=== PATIENT | male | born 1960 | race Caucasian/White ===

== ENCOUNTER 2021-04-24 16:50 | Emergency (ER) | payer BC ==
[~2021-04-24 16:50] MED LIST: Iopamidol 370 76% 100 ML VIAL ONE
[2021-04-24 17:49] LABS: #Basophils 0.1 thou/uL (0.0-0.2); #Eosinphils 0.2 thou/uL (0.0-0.7); #Lymphocytes 2.1 thou/uL (1.20-3.40); #Monocytes 0.6 thou/uL (0.11-0.59); #Neutrophils 6.4 thou/uL (1.40-6.50); %Basophils 0.7 % (0.0-1.0); %Eosinophils 1.7 % (0.0-10.0); %Lymphocytes 22.6 % (21.0-51.0); %Monocytes 6.8 % (0.0-10.0); %Neutrophils 68.3 % (42.0-75.0); Hemoglobin 15.1 g/dL (14.0-18.0); Mean Corpuscular HGB CONC 32.9 g/dL (32.0-36.0); Mean Corpuscular Hemoglobin 29.9 pg (27.0-31.0); Mean Corpuscular Volume 90.8 fL (78.0-98.0); Mean Platelet Volume 7.2 fL (7.4-10.4); Platelet Count 257 thou/uL (130-400); RBC Distribution Width 13.1 % (11.5-14.5); Red Blood Cell (RBC) Count 5.07 mill/uL (4.70-6.10); White Blood Cell (WBC) Count 9.4 thou/uL (4.8-10.8)
[2021-04-24 18:18] LABS: ALT (SGPT) 36 U/L (8-55); AST (SGOT) 42 U/L (5-34); Albumin 4.5 g/dL (3.5-5.0); Alkaline Phosphatase 57 U/L (40-110); Anion Gap 14 mmol/L (10-20); BUN (Urea Nitrogen) 17 mg/dL (8.4-25.7); Bilirubin, Total 0.4 mg/dL (0.2-1.2); Calc. Creatinine Clearance 0 mL/min (70-130); Calcium 9.9 mg/dL (7.8-10.44); Carbon Dioxide 29 mmol/L (22-29); Chloride 103 mmol/L (98-107); Globulin 2.5 g/dL (2.4-3.5); Glucose 114 mg/dL (70-105); Potassium 3.9 mmol/L (3.5-5.1); Sodium 142 mmol/L (136-145)
== END 2021-04-24 20:25 | disposition home or self-care (01) ==
LOC: ERS 16:50
DX: U07.1 COVID-19 (principal); R91.1 Solitary pulmonary nodule; I10 Essential (primary) hypertension; E11.9 Type 2 diabetes mellitus without complications; E78.5 Hyperlipidemia, unspecified; Z87.442 Personal history of urinary calculi; Z87.891 Personal history of nicotine dependence; Z79.899 Other long term (current) drug therapy
CPT/HCPCS: 36415; 71045; 71275; 80053; 84484; 85025; 93005; Q9967

== ENCOUNTER 2023-12-16 12:27 | Inpatient (IN) | payer BC ==
[2023-12-16] MEDS ORDERED: Dextrose 50% Abboject 50 ML SYRINGE SLOW IVP PRN (14:57)
[2023-12-16] MEDS ORDERED: Ondansetron PF 4 MG/2 ML Vial IVP PRN (14:57)
[2023-12-16] MEDS ORDERED: Glucagon 1 MG/ML KIT IM PRN (14:57)
[2023-12-16] MEDS ORDERED: Guaifenesin DM 100-10/5 ML UDCUP PO PRN (14:57)
[2023-12-16] MEDS ORDERED: Dextrose 5% in Water 1,000 ML IV PRN (14:57)
[2023-12-16] MEDS ORDERED: Calcium Carbonate 500 MG ChewTAB PO PRN (14:57)
[2023-12-16] MEDS ORDERED: Senokot S 8.6-50 MG TAB PO PRN (14:57)
[2023-12-16] MEDS ORDERED: Acetaminophen 325 MG TAB PO PRN (14:57)
[2023-12-16] MEDS ORDERED: Insulin Lispro 100 UNIT/ML 10 ML VIAL SC PRN ×2 (14:57)
[2023-12-16] MEDS: Sodium Chloride 0.9% 1,000 ML IV SCH (16:45)
[2023-12-16] MEDS: Atorvastatin Calcium 40 MG TAB PO SCH (20:09)
[2023-12-16] MEDS: Metoprolol Tartrate 25 MG TAB PO SCH (20:09)
[2023-12-16] MEDS: Lisinopril 20 MG TAB PO SCH (20:09)
[2023-12-16] MEDS: Fish Oil 1,000 MG CAP PO SCH (20:09)
[2023-12-16] MEDS: Enoxaparin 120 MG/0.8 ML SYRINGE SC SCH (20:10)
[2023-12-17] MEDS: Nitroglycerin 2% Ointment 1 INCH/1 GM Packet TOP SCH (00:23)
[2023-12-17 05:01] LABS: #Basophils 0.03 10x3/uL (0.0-0.2); %Basophils 0.5 % (0.0-1.0); %Eosinophils 1.8 % (0.0-10.0); %Lymphocytes 22.2 % (21.0-51.0); %Neutrophils 66.3 % (42.0-75.0); Hematocrit 38.8 % (42.0-52.0); Hemoglobin 12.9 g/dL (14.0-18.0); Mean Corpuscular HGB CONC 33.2 g/dL (32.0-36.0); Mean Corpuscular Hemoglobin 30.2 pg (27.0-31.0); Mean Corpuscular Volume 90.9 fL (78.0-98.0); Platelet Count 150 10x3/uL (130-400); RBC Distribution Width 14.2 % (11.5-14.5); Red Blood Cell (RBC) Count 4.27 mill/uL (4.70-6.10)
[2023-12-17 05:59] LABS: ALT (SGPT) 31 U/L (8-55); AST (SGOT) 35 U/L (5-34); Albumin 3.5 g/dL (3.4-4.8); Alkaline Phosphatase 38 U/L (40-110); Anion Gap 11 mmol/L (10-20); BUN (Urea Nitrogen) 13 mg/dL (8.4-25.7); Bilirubin, Total 0.3 mg/dL (0.2-1.2); Calc. Creatinine Clearance 119 mL/min (70-130); Calcium 9.1 mg/dL (7.8-10.44); Carbon Dioxide 24 mmol/L (23-31); Chloride 108 mmol/L (98-107); Estimated GFR 82; Globulin 2.4 g/dL (2.4-3.5); Glucose 157 mg/dL (80-115); Potassium 3.3 mmol/L (3.5-5.1); Protein, Total 5.9 g/dL (5.8-8.1); Sodium 140 mmol/L (136-145)
[2023-12-17] MEDS ORDERED: fentaNYL 50 mcg/mL 1 mL Vial ONE (06:27)
[2023-12-17] MEDS ORDERED: Heparin 10,000 UNITS/ 10 ML VIAL ONE (06:27)
[2023-12-17] MEDS ORDERED: Verapamil 5 MG/2 ML VIAL ONE (06:27)
[2023-12-17] MEDS ORDERED: Nitroglycerin 50 MG/250 ML BOT 250 ML ONE (06:27)
[2023-12-17] MEDS ORDERED: Midazolam HCl 2 mg/2 ml Vial ONE (06:27)
[2023-12-17] MEDS ORDERED: Sodium Chloride 0.9% 200 ML IV PRN (08:39)
[2023-12-17] MEDS ORDERED: Nitroglycerin 0.4 MG TAB (25 Tab Bottle) SL PRN (08:39)
[2023-12-17] MEDS: Alogliptin 25 MG TAB PO SCH (09:00)
[2023-12-17] MEDS ORDERED: Iopamidol 370 76% 100 ML VIAL ONE (09:08)
[2023-12-17] MEDS: Aspirin Chewable 81 MG TAB PO SCH (11:09)
[2023-12-17] MEDS: Ezetimibe 10 MG TAB PO SCH (11:10)
[2023-12-17] MEDS: Fenofibrate Nanocrystallized 145 MG TAB PO SCH (11:10)
[2023-12-17] MEDS: Phenytoin Extended Release 100 MG CAP PO SCH (11:11)
[2023-12-17] MEDS: Pioglitazone HCl 15 MG TAB PO SCH (11:11)
[2023-12-17] MEDS ORDERED: Potassium Chloride 20 MEQ in Premix 1 BAG IVPB SCH (12:00)
[2023-12-17] MEDS ORDERED: Amlodipine 10 MG TAB PO SCH (12:05)
[2023-12-17] MEDS: Potassium Chloride 20 MEQ TAB PO SCH (12:59)
[2023-12-17] MEDS: Potassium Chloride 40 MEQ in Premix 1 BAG IVPB SCH (13:20)
[2023-12-17] MEDS: Amlodipine 5 MG TAB PO SCH ×2 (13:44→20:43)
[2023-12-18] MEDS: hydrALAZINE 20 MG/ML VIAL SLOW IVP PRN (00:47)
[2023-12-18] MEDS: Cyclobenzaprine 10 MG TAB PO SCH (02:13)
[2023-12-18] MEDS: Loratadine 10 MG TAB PO SCH (09:36)
[2023-12-18] MEDS: Cholecalciferol 1,000 UNITS (25 MCG) TAB PO SCH (09:36)
[2023-12-19 05:48] LABS: Hematocrit 42.7 % (42.0-52.0); Hemoglobin 14.1 g/dL (14.0-18.0); Platelet Count 172 10x3/uL (130-400)
[2023-12-21 04:50] LABS: Prothrombin Time 13.1 sec (12.0-14.7)
[2023-12-21 04:51] LABS: #Basophils 0.04 10x3/uL (0.0-0.2); %Basophils 0.6 % (0.0-1.0); %Eosinophils 2.1 % (0.0-10.0); %Lymphocytes 22.3 % (21.0-51.0); %Monocytes 9.3 % (0.0-10.0); %Neutrophils 65.3 % (42.0-75.0); Hematocrit 38.5 % (42.0-52.0); Hemoglobin 12.9 g/dL (14.0-18.0); Mean Corpuscular HGB CONC 33.5 g/dL (32.0-36.0); Mean Corpuscular Hemoglobin 29.9 pg (27.0-31.0); Mean Corpuscular Volume 89.3 fL (78.0-98.0); Mean Platelet Volume 11.2 fL (7.4-10.4); PTT 36.4 sec (22.9-36.1); Platelet Count 142 10x3/uL (130-400); Red Blood Cell (RBC) Count 4.31 mill/uL (4.70-6.10)
[2023-12-21 05:37] LABS: Anion Gap 14 mmol/L (10-20); BUN (Urea Nitrogen) 14 mg/dL (8.4-25.7); Calc. Creatinine Clearance 99 mL/min (70-130); Calcium 9.2 mg/dL (7.8-10.44); Carbon Dioxide 24 mmol/L (23-31); Chloride 110 mmol/L (98-107); Estimated GFR 66; Glucose 132 mg/dL (80-115); Potassium 3.4 mmol/L (3.5-5.1); Sodium 145 mmol/L (136-145)
[2023-12-21] MEDS ORDERED: CEFAZOLIN 2 GM in Sodium Chloride 0.9% 100 ML IVPB SCH (06:00)
[2023-12-21] MEDS ORDERED: EPINEPHrine 1 MG/ML VIAL ONE (06:19)
[2023-12-21] MEDS ORDERED: Bupivacaine PF 0.5% 30 ML VIAL ONE (06:19)
[2023-12-21] MEDS ORDERED: PHENYLEPHRINE-NS 100 MCG/ML 10 ML SYRINGE ONE ×2 (06:19→08:19)
[2023-12-21] MEDS ORDERED: Dexamethasone 4 mg/ml Vial ONE ×2 (06:19→08:18)
[2023-12-21] MEDS ORDERED: Albumin 5% 500 ML ONE (06:19)
[2023-12-21] MEDS ORDERED: Lidocaine 1% MPF 2 ML VIAL ONE (06:29)
[2023-12-21] MEDS ORDERED: Sodium Chloride 0.9% 100 ML ONE ×2 (06:58→08:19)
[2023-12-21] MEDS ORDERED: CEFAZOLIN 2 GM VIAL ONE (06:58)
[2023-12-21] MEDS ORDERED: Heparin 10,000 UNITS/1 ML VIAL 30,000 UNITS in Sodium Chloride 0.9% 1,000 ML FS SCH (07:00)
[2023-12-21] MEDS ORDERED: Fentanyl 250 MCG/5 ML VIAL ONE (07:18)
[2023-12-21] MEDS ORDERED: Midazolam HCl 2 mg/2 ml Vial ONE (07:19)
[2023-12-21] MEDS ORDERED: PROPOFOL 20 ML ONE (07:20)
[2023-12-21] MEDS ORDERED: Lidocaine 2% PF 100 mg/5 ml Syringe ONE (07:50)
[2023-12-21] MEDS ORDERED: Sodium Bicarb 50 mEq/50 ML VIAL ONE (07:50)
[2023-12-21] MEDS ORDERED: Aminocaproic Acid 5 GM/20 ML VIAL ONE ×2 (07:50→08:18)
[2023-12-21] MEDS ORDERED: Heparin 5,000 UNITS/ML VIAL ONE (07:50)
[2023-12-21] MEDS ORDERED: Calcium Chloride 1 GM/10 ML Abboject SYRINGE ONE (07:50)
[2023-12-21] MEDS ORDERED: Heparin 30,000 units/30 ml VIAL ONE (07:50)
[2023-12-21] MEDS ORDERED: Vancomycin 1 GM VIAL ONE (07:50)
[2023-12-21] MEDS ORDERED: Cardioplegic Soln 1,000 ML BAG ONE (07:50)
[2023-12-21] MEDS ORDERED: Protamine Sulfate 250 MG/25 ML VIAL ONE (07:50)
[2023-12-21] MEDS ORDERED: Mannitol 12.5 GM/50 ML ONE (07:50)
[2023-12-21] MEDS ORDERED: Thrombin 5000 UNITS/5 ML VIAL ONE (07:50)
[2023-12-21] MEDS ORDERED: Potassium Chloride 60 mEq (30 mL) VIAL ONE (07:50)
[2023-12-21] MEDS ORDERED: Magnesium 5 GM/10 ML VIAL ONE (07:50)
[2023-12-21] MEDS ORDERED: Papaverine 60 MG/2 ML VIAL ONE (07:50)
[2023-12-21] MEDS ORDERED: Norepinephrine 4 MG/4 ML VIAL ONE (08:18)
[2023-12-21] MEDS ORDERED: Rocuronium Bromide 10 MG/ML (10ML VIAL) ONE (08:18)
[2023-12-21] MEDS ORDERED: Ondansetron PF 4 MG/2 ML Vial ONE (08:18)
[2023-12-21] MEDS ORDERED: Etomidate 40 MG (20 mL) VIAL ONE (08:19)
[2023-12-21] MEDS ORDERED: Sevoflurane 250 ML INH ANEST BOTTLE ONE (08:19)
[2023-12-21] MEDS ORDERED: Sodium Chloride 0.9% 250 ML 250 ML ONE (08:19)
[2023-12-21] MEDS ORDERED: ePHEDrine Sulfate 50 MG/10 ML VIAL ONE (08:19)
[2023-12-21] MEDS ORDERED: Heparin 10,000 UNITS/ 10 ML VIAL ONE (08:49)
[2023-12-21] MEDS ORDERED: Insulin Regular, Human 100 UNIT/ML 10 ML VIAL ONE ×2 (10:45)
[2023-12-21] MEDS ORDERED: Morphine 2 MG/ML VIAL SLOW IVP PRN (12:43)
[2023-12-21] MEDS ORDERED: Ipratropium/Albuterol 3 ML NEB NEB PRN (12:43)
[2023-12-21] MEDS ORDERED: Bisacodyl 10 MG SUPP PR PRN (12:43)
[2023-12-21] MEDS ORDERED: Promethazine HCl 25 MG/ML VIAL IM PRN (12:43)
[2023-12-21] MEDS ORDERED: Guaifenesin DM 100-10/5 ML UDCUP PO PRN (12:43)
[2023-12-21] MEDS ORDERED: Ondansetron PF 4 MG/2 ML Vial IVP PRN (12:43)
[2023-12-21 13:00] LABS: Actual Bicarbonate (HCO3a) 20.8 mEq/L (22-28); Base Excess (BEa) -5.9 mEq/L (-2.0 to +3.0); CO2 Tension 45.7 mmHg (35.0-45.0); Calcium, Ionized (arterial) 1.18 mmol/L (1.12-1.30); Carboxyhemoglobin (COHb) 0.9 gm% (0.0-3.0); Hematocrit-ABG 38 % (42.0-52.0); O2 Tension (PaO2), arterial 89.3 mmHg (> 80.0); pH, Arterial 7.277 (7.35-7.45)
[2023-12-21] MEDS ORDERED: Dextrose 50% Abboject 50 ML SYRINGE SLOW IVP PRN (13:00)
[2023-12-21] MEDS ORDERED: Glucagon 1 MG/ML KIT SC PRN (13:00)
[2023-12-21] MEDS ORDERED: Dextrose 5% in Water 1,000 ML IV PRN (13:00)
[2023-12-21] MEDS: Albumin 5% 12.5 GM (250 mL) BOT IVPB PRN ×2 (13:07)
[2023-12-21 13:10] LABS: ALV-art Gradient 281.375 mmHg (0-20); Puncture Site Arterial Line
[2023-12-21] MEDS: Ketorolac Tromethamine 30 MG (1 mL) VIAL IVP SCH ×2 (13:11→14:14)
[2023-12-21] MEDS: hydrALAZINE 20 MG/ML VIAL SLOW IVP PRN (13:17)
[2023-12-21] MEDS: Magnesium 2 GM/50 ML(in water) 2 GM in Premix 1 BAG IVPB SCH (13:18)
[2023-12-21] MEDS: fentaNYL 50 mcg/mL 1 mL Vial SLOW IVP PRN ×2 (13:26→16:42)
[2023-12-21 13:33] LABS: INR-International Normal Ratio 1.2; PTT 29.1 sec (22.9-36.1); Prothrombin Time 14.9 sec (12.0-14.7)
[2023-12-21] MEDS: Sodium Chloride 0.9% 1,000 ML IV SCH (13:36)
[2023-12-21 13:39] LABS: #Basophils 0.06 10x3/uL (0.0-0.2); %Basophils 0.2 % (0.0-1.0); %Eosinophils 0.2 % (0.0-10.0); %Lymphocytes 8.1 % (21.0-51.0); %Monocytes 6.1 % (0.0-10.0); Hemoglobin 12.3 g/dL (14.0-18.0); Mean Corpuscular HGB CONC 33.2 g/dL (32.0-36.0); Mean Corpuscular Hemoglobin 30.5 pg (27.0-31.0); Mean Corpuscular Volume 91.8 fL (78.0-98.0); Platelet Count 220 10x3/uL (130-400); RBC Distribution Width 14.1 % (11.5-14.5); Red Blood Cell (RBC) Count 4.03 mill/uL (4.70-6.10)
[2023-12-21 13:40] LABS: Anion Gap 12 mmol/L (10-20); BUN (Urea Nitrogen) 14 mg/dL (8.4-25.7); Calc. Creatinine Clearance 97 mL/min (70-130); Calcium 8.4 mg/dL (7.8-10.44); Carbon Dioxide 22 mmol/L (23-31); Chloride 116 mmol/L (98-107); Estimated GFR 64; Glucose 183 mg/dL (80-115); Potassium 3.5 mmol/L (3.5-5.1); Sodium 146 mmol/L (136-145)
[2023-12-21] MEDS: INSULIN REGULAR IN 0.9 % NACL 100 UNITS in Premix 1 BAG IVPB SCH (13:47)
[2023-12-21] MEDS: NOREPINEPHRINE 8 MG/250 ML-D5W 250 ML IVPB PRN (14:01)
[2023-12-21] MEDS: Post-Op Insulin Drip Protocol IVPB ONE (14:16)
[2023-12-21] MEDS: Potassium Chloride 20 MEQ (100 mL) BAG IVPB PRN (14:21)
[2023-12-21] MEDS: FLU (Fluarix Triv) TS24-25(6MOS UP)/PF 45 MCG/0.5 ML Syringe IM ONE (14:55)
[2023-12-21] MEDS: CEFAZOLIN 2 GM in Sodium Chloride 0.9% 100 ML IVPB SCH (15:57)
[2023-12-21] MEDS: Nitroglycerin 50 MG/250 ML BOT 250 ML ONE (16:20)
[2023-12-21 16:45] LABS: Actual Bicarbonate (HCO3a) 20.4 mEq/L (22-28); CO2 Tension 38.8 mmHg (35.0-45.0); Calcium, Ionized (arterial) 1.16 mmol/L (1.12-1.30); Carboxyhemoglobin (COHb) 0.6 gm% (0.0-3.0); Hematocrit-ABG 36 % (42.0-52.0); Hemoglobin (Hb) 12.4 g/dL (14.0-18.0); O2 Tension (PaO2), arterial 89.6 mmHg (> 80.0); pH, Arterial 7.338 (7.35-7.45)
[2023-12-21 16:47] LABS: Puncture Site Arterial Line
[2023-12-21] MEDS: Aspirin Chewable 81 MG TAB PO SCH (18:00)
[2023-12-21] MEDS: HYDROcodone/Acetaminophen 5/325 mg Tablet PO PRN (18:00)
[2023-12-21] MEDS: Sodium Bicarb 50 MEQ/50 ML Abboject 8.4% SYRINGE IVP SCH (18:13)
[2023-12-21 19:44] LABS: Hematocrit 33.9 % (42.0-52.0); Hemoglobin 11.4 g/dL (14.0-18.0)
[2023-12-21 19:55] LABS: Potassium 4.1 mmol/L (3.5-5.1)
[2023-12-21] MEDS: Famotidine/PF 20 mg/2ml Vial SLOW IVP SCH (20:03)
[2023-12-22 04:47] LABS: #Basophils Less than 0.03 10x3/uL (0.0-0.2); #Eosinophils Less than 0.03 10x3/uL (0.0-0.7); %Basophils 0.2 % (0.0-1.0); %Lymphocytes 8.3 % (21.0-51.0); %Monocytes 8.8 % (0.0-10.0); %Neutrophils 82.2 % (42.0-75.0); Hematocrit 33.2 % (42.0-52.0); Hemoglobin 10.7 g/dL (14.0-18.0); Mean Corpuscular HGB CONC 32.2 g/dL (32.0-36.0); Mean Corpuscular Hemoglobin 30.6 pg (27.0-31.0); Mean Corpuscular Volume 94.9 fL (78.0-98.0); Mean Platelet Volume 10.9 fL (7.4-10.4); Platelet Count 139 10x3/uL (130-400); RBC Distribution Width 14.6 % (11.5-14.5)
[2023-12-22 04:54] LABS: INR-International Normal Ratio 1.1; PTT 34.2 sec (22.9-36.1); Prothrombin Time 14.6 sec (12.0-14.7)
[2023-12-22 04:56] VITALS: BMI 35.8
[2023-12-22 05:04] LABS: Anion Gap 8 mmol/L (10-20); BUN (Urea Nitrogen) 15 mg/dL (8.4-25.7); Calc. Creatinine Clearance 120 mL/min (70-130); Calcium 8.8 mg/dL (7.8-10.44); Carbon Dioxide 25 mmol/L (23-31); Chloride 116 mmol/L (98-107); Estimated GFR 80; Glucose 134 mg/dL (80-115); Sodium 145 mmol/L (136-145)
[2023-12-22] MEDS: Aspirin 325 MG TAB PO SCH (08:20)
[2023-12-22] MEDS: Magnesium 2 GM/50 ML(in water) 2 GM in Premix 1 BAG IVPB SCH (08:21)
[2023-12-22] MEDS ORDERED: Insulin Glargine 30 UNITS/0.3 ML VIAL SC PRN (12:48)
[2023-12-22] MEDS: Insulin Glargine 30 UNITS/0.3 ML VIAL SC SCH (13:29)
[2023-12-22] MEDS: Mag-Al 1200 mg/1200 mg/30 ML UDCUP PO PRN (13:57)
[2023-12-22] MEDS: Lidocaine 4% Patch TD SCH (16:45)
[2023-12-22] MEDS: Cyclobenzaprine 10 MG TAB PO SCH ×2 (16:45→20:11)
[2023-12-22] MEDS: Insulin Regular, Human 100 UNIT/ML 10 ML VIAL SC PRN (16:45)
[2023-12-22] MEDS: Metoprolol Tartrate 25 MG TAB PO SCH (20:11)
[2023-12-23] MEDS: Transdermal Patch Removal TOP SCH (04:38)
[2023-12-23] MEDS: HYDROcodone/Acetaminophen 5/325 mg Tablet PO PRN (05:09)
[2023-12-23 06:24] LABS: INR-International Normal Ratio 1.4; PTT 43.9 sec (22.9-36.1); Prothrombin Time 16.7 sec (12.0-14.7)
[2023-12-23 06:28] LABS: #Basophils Less than 0.03 10x3/uL (0.0-0.2); %Basophils 0.3 % (0.0-1.0); %Eosinophils 0.4 % (0.0-10.0); %Lymphocytes 12.1 % (21.0-51.0); %Monocytes 9.2 % (0.0-10.0); %Neutrophils 77.5 % (42.0-75.0); Hemoglobin 9.7 g/dL (14.0-18.0); Mean Corpuscular HGB CONC 32.3 g/dL (32.0-36.0); Mean Corpuscular Hemoglobin 29.8 pg (27.0-31.0); Mean Corpuscular Volume 92.3 fL (78.0-98.0); Platelet Count 121 10x3/uL (130-400); RBC Distribution Width 14.6 % (11.5-14.5); Red Blood Cell (RBC) Count 3.25 mill/uL (4.70-6.10)
[2023-12-23 06:54] LABS: Anion Gap 7 mmol/L (10-20); BUN (Urea Nitrogen) 18 mg/dL (8.4-25.7); Calc. Creatinine Clearance 128 mL/min (70-130); Calcium 8.5 mg/dL (7.8-10.44); Carbon Dioxide 26 mmol/L (23-31); Chloride 113 mmol/L (98-107); Estimated GFR 92; Glucose 151 mg/dL (80-115); Potassium 3.8 mmol/L (3.5-5.1); Sodium 142 mmol/L (136-145)
[2023-12-23] MEDS: Lisinopril 2.5 MG TAB PO SCH (08:07)
[2023-12-23] MEDS: Famotidine 20 MG TAB PO SCH (08:08)
[2023-12-23] MEDS: Metoprolol Tartrate 25 MG TAB PO SCH (08:08)
[2023-12-23] MEDS: fentaNYL 50 mcg/mL 1 mL Vial SLOW IVP SCH (08:58)
[2023-12-23] MEDS: Furosemide 40 MG (4 mL) VIAL SLOW IVP SCH (08:58)
[2023-12-23] MEDS: Gabapentin 300 MG CAP PO SCH (09:01)
[2023-12-23 10:46] VITALS: BMI 34.4
[2023-12-23] MEDS ORDERED: Lisinopril 10 MG TAB PO SCH (21:00)
[2023-12-23] MEDS: Lisinopril 5 MG TAB PO SCH (22:06)
[2023-12-23] MEDS: Bisacodyl 5 MG TAB PO PRN (22:32)
[2023-12-24 04:12] LABS: #Basophils Less than 0.03 10x3/uL (0.0-0.2); %Basophils 0.2 % (0.0-1.0); %Eosinophils 2.4 % (0.0-10.0); %Lymphocytes 16.1 % (21.0-51.0); %Monocytes 9.9 % (0.0-10.0); %Neutrophils 70.8 % (42.0-75.0); Hematocrit 29.2 % (42.0-52.0); Hemoglobin 9.6 g/dL (14.0-18.0); Mean Corpuscular HGB CONC 32.9 g/dL (32.0-36.0); Mean Corpuscular Hemoglobin 29.9 pg (27.0-31.0); Mean Platelet Volume 10.8 fL (7.4-10.4); Platelet Count 125 10x3/uL (130-400); RBC Distribution Width 14.2 % (11.5-14.5); Red Blood Cell (RBC) Count 3.21 mill/uL (4.70-6.10)
[2023-12-24 04:23] LABS: INR-International Normal Ratio 1.2; Prothrombin Time 15.7 sec (12.0-14.7)
[2023-12-24 04:24] LABS: PTT 41.3 sec (22.9-36.1)
[2023-12-24 04:52] LABS: Anion Gap 11 mmol/L (10-20); BUN (Urea Nitrogen) 22 mg/dL (8.4-25.7); Calc. Creatinine Clearance 139 mL/min (70-130); Calcium 8.4 mg/dL (7.8-10.44); Carbon Dioxide 26 mmol/L (23-31); Chloride 110 mmol/L (98-107); Estimated GFR 98; Glucose 128 mg/dL (80-115); Potassium 3.5 mmol/L (3.5-5.1); Sodium 143 mmol/L (136-145)
[2023-12-24] MEDS: Lisinopril 20 MG TAB PO SCH (20:34)
[2023-12-24] MEDS: Amlodipine 5 MG TAB PO SCH (20:34)
[2023-12-25] MEDS: hydrALAZINE 20 MG/ML VIAL SLOW IVP PRN (02:58)
[2023-12-25 04:51] LABS: #Basophils 0.05 10x3/uL (0.0-0.2); %Basophils 0.5 % (0.0-1.0); %Eosinophils 3.2 % (0.0-10.0); %Lymphocytes 14.5 % (21.0-51.0); %Monocytes 9.1 % (0.0-10.0); %Neutrophils 72.3 % (42.0-75.0); Hematocrit 38.2 % (42.0-52.0); Hemoglobin 12.8 g/dL (14.0-18.0); Mean Corpuscular HGB CONC 33.5 g/dL (32.0-36.0); Mean Corpuscular Volume 89.7 fL (78.0-98.0); Mean Platelet Volume 11.1 fL (7.4-10.4); Platelet Count 231 10x3/uL (130-400); RBC Distribution Width 13.8 % (11.5-14.5); Red Blood Cell (RBC) Count 4.26 mill/uL (4.70-6.10)
[2023-12-25 04:56] LABS: Anion Gap 15 mmol/L (10-20); BUN (Urea Nitrogen) 21 mg/dL (8.4-25.7); Calc. Creatinine Clearance 120 mL/min (70-130); Calcium 9.6 mg/dL (7.8-10.44); Carbon Dioxide 24 mmol/L (23-31); Chloride 109 mmol/L (98-107); Estimated GFR 84; Glucose 164 mg/dL (80-115); Potassium 3.6 mmol/L (3.5-5.1); Sodium 144 mmol/L (136-145)
[2023-12-25] MEDS: Pioglitazone HCl 15 MG TAB PO SCH (08:44)
[2023-12-25] MEDS: Ezetimibe 10 MG TAB PO SCH (08:44)
[2023-12-25] MEDS: Furosemide 20 MG TAB PO SCH (08:44)
[2023-12-26] MEDS: Metoprolol Tartrate 25 MG TAB PO SCH (08:25)
[2023-12-26 08:40] LABS: #Basophils 0.03 10x3/uL (0.0-0.2); %Basophils 0.3 % (0.0-1.0); %Eosinophils 2.2 % (0.0-10.0); %Lymphocytes 12.7 % (21.0-51.0); %Neutrophils 75.4 % (42.0-75.0); Hematocrit 37.8 % (42.0-52.0); Hemoglobin 12.4 g/dL (14.0-18.0); Mean Corpuscular HGB CONC 32.8 g/dL (32.0-36.0); Mean Corpuscular Hemoglobin 30.2 pg (27.0-31.0); Mean Corpuscular Volume 92.2 fL (78.0-98.0); Mean Platelet Volume 10.3 fL (7.4-10.4); Platelet Count 234 10x3/uL (130-400); RBC Distribution Width 14.1 % (11.5-14.5)
[2023-12-26 08:56] LABS: Anion Gap 13 mmol/L (10-20); BUN (Urea Nitrogen) 17 mg/dL (8.4-25.7); Calc. Creatinine Clearance 135 mL/min (70-130); Calcium 9.7 mg/dL (7.8-10.44); Carbon Dioxide 24 mmol/L (23-31); Chloride 108 mmol/L (98-107); Estimated GFR 97; Glucose 211 mg/dL (80-115); Potassium 3.8 mmol/L (3.5-5.1); Sodium 141 mmol/L (136-145)
[2023-12-26] MEDS: Acetaminophen 325 MG TAB PO PRN (10:59)
[2023-12-26] MEDS: Metoprolol Tartrate 50 MG TAB PO SCH (20:21)
[2023-12-27 05:30] LABS: #Basophils 0.03 10x3/uL (0.0-0.2); %Basophils 0.4 % (0.0-1.0); %Eosinophils 2.8 % (0.0-10.0); %Lymphocytes 17.4 % (21.0-51.0); %Monocytes 10.2 % (0.0-10.0); %Neutrophils 68.6 % (42.0-75.0); Hematocrit 37.9 % (42.0-52.0); Hemoglobin 12.4 g/dL (14.0-18.0); Mean Corpuscular HGB CONC 32.7 g/dL (32.0-36.0); Mean Corpuscular Hemoglobin 29.6 pg (27.0-31.0); Mean Corpuscular Volume 90.5 fL (78.0-98.0); Mean Platelet Volume 10.3 fL (7.4-10.4); Platelet Count 230 10x3/uL (130-400); RBC Distribution Width 14.1 % (11.5-14.5); Red Blood Cell (RBC) Count 4.19 mill/uL (4.70-6.10)
[2023-12-27 05:38] LABS: Anion Gap 13 mmol/L (10-20); BUN (Urea Nitrogen) 17 mg/dL (8.4-25.7); Calc. Creatinine Clearance 143 mL/min (70-130); Calcium 9.8 mg/dL (7.8-10.44); Carbon Dioxide 25 mmol/L (23-31); Chloride 108 mmol/L (98-107); Estimated GFR 98; Glucose 164 mg/dL (80-115); Potassium 3.8 mmol/L (3.5-5.1); Sodium 142 mmol/L (136-145)
[2023-12-29] MEDS: Saxagliptin 2.5 MG TAB PO SCH (12:10)
[2023-12-29] MEDS: metFORMIN 500 MG TAB PO SCH ×2 (12:10→17:08)
[2023-12-29] MEDS ORDERED: metFORMIN 500 MG TAB PO SCH (17:00)
[2023-12-29 20:14] VITALS: BP 136/77; TEMP 97.6
[2023-12-30] MEDS ORDERED: Saxagliptin 2.5 MG TAB PO SCH (09:00)
== END 2023-12-29 20:17 | DRG 233 ==
LOC: 2SW 13:40 → OBSVTOIN 14:57 → CCU 12-21 12:54 → 2NO 12-22 19:55
PROVIDERS: ADMIT Internal Medicine; ATTEND Internal Medicine
PROC: 4A023N7 Measurement of Cardiac Sampling and Pressure, Left Heart, Percutaneous Approach (ICD-10-PCS; principal; 2023-12-17)
PROC: B2111ZZ Fluoroscopy of Multiple Coronary Arteries using Low Osmolar Contrast (ICD-10-PCS; 2023-12-17)
PROC: B2151ZZ Fluoroscopy of Left Heart using Low Osmolar Contrast (ICD-10-PCS; 2023-12-17)
PROC: 02100Z9 Bypass Coronary Artery, One Artery from Left Internal Mammary, Open Approach (ICD-10-PCS; 2023-12-21)
PROC: 021109W Bypass Coronary Artery, Two Arteries from Aorta with Autologous Venous Tissue, Open Approach (ICD-10-PCS; 2023-12-21)
PROC: 06BQ4ZZ Excision of Left Saphenous Vein, Percutaneous Endoscopic Approach (ICD-10-PCS; 2023-12-21)
PROC: 5A1221Z Performance of Cardiac Output, Continuous (ICD-10-PCS; 2023-12-21)
PROC: 02L70CK Occlusion of Left Atrial Appendage with Extraluminal Device, Open Approach (ICD-10-PCS; 2023-12-21)
PROC: 4A133R1 Monitoring of Arterial Saturation, Peripheral, Percutaneous Approach (ICD-10-PCS; 2023-12-21)
PROC: 3E033XZ Introduction of Vasopressor into Peripheral Vein, Percutaneous Approach (ICD-10-PCS; 2023-12-21)
PROC: 30233J1 Transfusion of Nonautologous Serum Albumin into Peripheral Vein, Percutaneous Approach (ICD-10-PCS; 2023-12-21)
DX: I21.4 Non-ST elevation (NSTEMI) myocardial infarction (principal); I63.89 Other cerebral infarction; I69.854 Hemiplegia and hemiparesis following other cerebrovascular disease affecting left non-dominant side; I25.110 Atherosclerotic heart disease of native coronary artery with unstable angina pectoris; E11.9 Type 2 diabetes mellitus without complications; I10 Essential (primary) hypertension; E78.5 Hyperlipidemia, unspecified; Z98.890 Other specified postprocedural states; G40.909 Epilepsy, unspecified, not intractable, without status epilepticus; I25.10 Atherosclerotic heart disease of native coronary artery without angina pectoris; Z79.899 Other long term (current) drug therapy; E87.6 Hypokalemia; Z79.82 Long term (current) use of aspirin; Z88.5 Allergy status to narcotic agent
CPT/HCPCS: 36415; 36416; 36430; 70551; 71045; 71275; 74174; 80048; 80053; 82565; 82805; 83690; 83735; 83880; 84484; 85014; 85018; 85025; 85049; 85610; 85730; 86850; 86900; 86901; 87428; 93005; 93010; 93458; 94002; 94150; 94760; 96372; 99152; A4311; A4648; C1751; C1769; C1889; C1894; J0171; J0360; J0665; J1100; J1642; J1644; J1650; J1815; J1885; J1940; J2001; J2150; J2250; J2405; J2440; J2704; J2720; J3010; J3370; J3475; J3480; J3490; J7030; J7050; P9045; Q9967; S0017

== ENCOUNTER 2024-02-03 11:14 | Emergency (ER) | payer BC ==
[2024-02-03 12:07] LABS: #Basophils 0.05 10x3/uL (0.0-0.2); %Basophils 0.7 % (0.0-1.0); %Eosinophils 1.6 % (0.0-10.0); %Monocytes 7.4 % (0.0-10.0); Hematocrit 39.1 % (42.0-52.0); Hemoglobin 12.6 g/dL (14.0-18.0); Mean Corpuscular HGB CONC 32.2 g/dL (32.0-36.0); Mean Corpuscular Hemoglobin 28.6 pg (27.0-31.0); Mean Corpuscular Volume 88.7 fL (78.0-98.0); Mean Platelet Volume 10.3 fL (7.4-10.4); Platelet Count 177 10x3/uL (130-400); RBC Distribution Width 13.4 % (11.5-14.5); Red Blood Cell (RBC) Count 4.41 mill/uL (4.70-6.10)
[2024-02-03] MEDS ORDERED: fentaNYL 50 mcg/mL 1 mL Vial ONE (12:14)
[2024-02-03 12:25] LABS: ALT (SGPT) 16 U/L (8-55); AST (SGOT) 23 U/L (5-34); Alkaline Phosphatase 60 U/L (40-110); Anion Gap 14 mmol/L (10-20); BUN (Urea Nitrogen) 15 mg/dL (8.4-25.7); Bilirubin, Total 0.3 mg/dL (0.2-1.2); Calc. Creatinine Clearance 0 mL/min (70-130); Calcium 10.1 mg/dL (7.8-10.44); Carbon Dioxide 29 mmol/L (23-31); Chloride 103 mmol/L (98-107); Estimated GFR 66; Globulin 3.2 g/dL (2.4-3.5); Glucose 150 mg/dL (80-115); Lipase 32 U/L (8-78); Potassium 4.1 mmol/L (3.5-5.1); Protein, Total 7.2 g/dL (5.8-8.1); Sodium 142 mmol/L (136-145)
[2024-02-03 12:29] LABS: Troponin I Less than 0.010 ng/mL (< 0.028)
[2024-02-03 15:37] LABS: Bacteria/HPF None Seen HPF (None Seen); Bilirubin Negative (Negative); Blood, Urine Negative (Negative); CAUTI Indications for Culture Pelvic or flank pain; Clarity Clear (Clear); Glucose, Urine (Dipstick) Normal (Negative); Ketone, Urine Negative (Negative); Leukocyte Negative Leu/uL (Negative); Nitrite Negative (Negative); Protein, Urine (Dipstick) Negative (Neg-Trace); RBC/HPF 0-3 HPF (0-3); Squamous Epithelial None Seen HPF (0-3); Urobilinogen Normal mg/dL (Less than 2); WBC/HPF 0-3 HPF (0-3); pH, Urine 6.5 (5.0-9.0)
[2024-02-03 15:39] LABS: Urine Culture Reflex No No
[2024-02-03] MEDS ORDERED: HYDROcodone/Acetaminophen 10/325 mg Tablet ONE (15:55)
[2024-02-03] MEDS ORDERED: Lidocaine 4% Patch TD SCH (16:00)
[2024-02-03] MEDS ORDERED: HYDROcodone/Acetaminophen 10/325 mg Tablet PO SCH (16:00)
[2024-02-03] MEDS ORDERED: Lidocaine 4% Patch ONE (16:28)
== END 2024-02-03 16:47 | disposition home or self-care (01) ==
LOC: ERS 11:14
DX: M54.16 Radiculopathy, lumbar region (principal); E11.9 Type 2 diabetes mellitus without complications; I10 Essential (primary) hypertension; E78.5 Hyperlipidemia, unspecified; Z55.0 Illiteracy and low-level literacy; Z86.73 Personal history of transient ischemic attack (TIA), and cerebral infarction without residual deficits; Z87.891 Personal history of nicotine dependence; Z79.84 Long term (current) use of oral hypoglycemic drugs; Z79.899 Other long term (current) drug therapy
CPT/HCPCS: 36415; 71275; 72193; 74174; 80053; 81001; 83690; 84484; 85025; 93005; 96374; J3010